=== PATIENT | female | born 1980 | race Caucasian/White ===

== ENCOUNTER 2018-12-24 20:53 | Inpatient (IN) | payer BC ==
[2018-12-24] MEDS: ONDANSETRON 4 MG INJ IV (21:46)
[2018-12-24] MEDS: PIPER-TAZO 3.375 GM IV (PMX) 100 ML IVPB (21:46)
[2018-12-24] MEDS: morphine 4 MG/ML VIAL IV (21:46)
[2018-12-24] MEDS: ACETAMINOPHEN 325 MG TAB PO (21:46)
[2018-12-24] MEDS: SODIUM CHLORIDE 0.9% 1L BAG IV* (21:46)
[2018-12-24 21:53] LABS: ADD MAN DIFF? NO
[2018-12-24 21:59] LABS: WHITE BLOOD COUNT 17.1 10^3/ul (4.8-10.8)
[2018-12-24 21:59] LABS: ABNORMAL IP MESSAGE 1; BASOPHIL # 0.1 10^3/ul (0.0-0.1); BASOPHILS % 0.6 % (0.0-2.0); EOSINOPHILS # 0.3 10^3/ul (0.0-0.5); EOSINOPHILS % 1.8 % (0.0-7.0); HEMATOCRIT 38.1 % (37.0-47.0); HEMOGLOBIN 12.2 g/dl (12.0-16.0); LYMPHOCYTES # 1.6 10^3/ul (0.8-2.9); LYMPHOCYTES % 9.5 % (15.0-51.0); MEAN CORPUSCULAR HEMOGLOBIN 27.5 pg (29.0-33.0); MEAN PLATELET VOLUME 10.7 fl (7.4-10.4); MONOCYTE # 0.9 10^3/ul (0.3-0.9); NEUTROPHIL # 13.3 10^3/ul (1.6-7.5); NEUTROPHILS % 77.6 % (39.0-77.0); PLATELET COUNT 438 10^3/UL (140-415); RED BLOOD COUNT 4.43 10^6/ul (4.20-5.40); RED CELL DISTRIBUTION WIDTH 15.9 % (11.5-14.5)
[2018-12-24 22:00] LABS: POSITIVE DIFF @See below
[2018-12-24 22:18] LABS: INR 1.18; PROTIME 15.1 Sec (11.9-14.9); PT RATIO 1.2
[2018-12-24 22:19] LABS: ANION GAP 11 (5-13); BLOOD UREA NITROGEN 22 mg/dl (7-20); CALCIUM 8.9 mg/dl (8.4-10.2); CARBON DIOXIDE 27 mmol/L (21-31); CHLORIDE 99 mmol/L (97-110); CREATININE 0.81 mg/dl (0.44-1.00); Estimated GFR > 60 mL/min (>60); GLUCOSE 118 mg/dl (70-220); PARTIAL THROMBOPLASTIN TIME 41.2 Sec (23.0-35.0); SODIUM 137 mmol/L (135-144)
[2018-12-24] MEDS ORDERED: ONDANSETRON 4 MG INJ IV (22:30)
[2018-12-24] MEDS: CLINDAMYCIN 900 MG/D5W (PMX) 50 ML IVPB (22:34)
[2018-12-24 23:02] LABS: ERYTHROCYTE SEDIMENTATION RATE 81 mm/Hr (0-20)
[2018-12-24 23:16] LABS: C-REACTIVE PROTEIN 42.8 mg/dl (0.0-0.9)
[2018-12-24] MEDS: HYDROmorphONE 0.5 MG/0.5 ML SYG IV (23:30)
[2018-12-24] MEDS: VANCOMYCIN 1 GM (PMX) 250 ML IVPB (23:30)
[2018-12-25 01:27] LABS: LACTIC ACID 1.9 mmol/L (0.5-2.0)
[2018-12-25 03:06] LABS: LACTIC ACID 1.2 mmol/L (0.5-2.0)
[2018-12-25] MEDS ORDERED: NACL 0.9% 3 ML SYG IV (03:30)
[2018-12-25] MEDS ORDERED: ONDANSETRON 4 MG INJ IV (03:30)
[2018-12-25] MEDS ORDERED: ACETAMINOPHEN 325 MG TAB PO (03:30)
[2018-12-25] MEDS ORDERED: VANCOMYCIN IV PER PHARMACY XX (03:30)
[2018-12-25] MEDS: SOD CHLORIDE 0.9% 1,000 ML IV ×3 (04:15→21:50)
[2018-12-25] MEDS: CEFEPIME 1GM/50 ML (PMX) 50 ML IVPB ×2 (09:14→20:18)
[2018-12-25] MEDS: ENOXAPARIN 40 MG/0.4 ML SYG SC (09:14)
[2018-12-25 09:32] LABS: ADD MAN DIFF? NO
[2018-12-25 09:37] LABS: BASOPHIL # 0.1 10^3/ul (0.0-0.1); BASOPHILS % 0.9 % (0.0-2.0); EOSINOPHILS # 0.4 10^3/ul (0.0-0.5); EOSINOPHILS % 2.4 % (0.0-7.0); HEMATOCRIT 36.8 % (37.0-47.0); HEMOGLOBIN 11.6 g/dl (12.0-16.0); LYMPHOCYTES # 1.6 10^3/ul (0.8-2.9); LYMPHOCYTES % 10.8 % (15.0-51.0); MEAN CORPUSCULAR HEMOGLOBIN 27.8 pg (29.0-33.0); MEAN CORPUSCULAR HGB CONC 31.5 g/dl (32.0-37.0); MEAN PLATELET VOLUME 11.2 fl (7.4-10.4); MONOCYTE # 0.7 10^3/ul (0.3-0.9); MONOCYTES % 4.4 % (0.0-11.0); NEUTROPHIL # 11.7 10^3/ul (1.6-7.5); NEUTROPHILS % 78.7 % (39.0-77.0); PLATELET COUNT 353 10^3/UL (140-415); RED BLOOD COUNT 4.18 10^6/ul (4.20-5.40); RED CELL DISTRIBUTION WIDTH 16.3 % (11.5-14.5)
[2018-12-25 09:37] LABS: WHITE BLOOD COUNT 14.9 10^3/ul (4.8-10.8)
[2018-12-25 09:55] LABS: ALANINE AMINOTRANSFERASE 14 IU/L (13-69); ALBUMIN 3.1 g/dl (3.3-4.9); ALBUMIN/GLOBULIN RATIO 0.73; ALKALINE PHOSPHATASE 497 IU/L (42-121); ANION GAP 6 (5-13); ASPARTATE AMINO TRANSFERASE 36 IU/L (15-46); BILIRUBIN,INDIRECT 0.4 mg/dl (0-1.1); BILIRUBIN,TOTAL 0.4 mg/dl (0.2-1.3); BLOOD UREA NITROGEN 19 mg/dl (7-20); CALCIUM 8.2 mg/dl (8.4-10.2); CARBON DIOXIDE 27 mmol/L (21-31); CHLORIDE 105 mmol/L (97-110); CHOL/HDL RATIO 8.2 RATIO; CHOLESTEROL 107 mg/dl (100-200); CREATININE 0.57 mg/dl (0.44-1.00); Estimated GFR > 60 mL/min (>60); GLUCOSE 139 mg/dl (70-220); HDL CHOLESTEROL 13 mg/dl (34-88); LDL CHOLESTEROL,CALCULATED 61 mg/dl; MAGNESIUM 2.2 mg/dl (1.7-2.5); PHOSPHORUS 5.3 mg/dl (2.5-4.9); POTASSIUM 4.9 mmol/L (3.5-5.1); SODIUM 138 mmol/L (135-144); TOTAL PROTEIN 7.3 g/dl (6.1-8.1); TRIGLYCERIDES 167 mg/dl (0-149)
[2018-12-25] MEDS: VANCOMYCIN HCL 1.5 GM in SOD CHLORIDE 0.9% 250 ML IVPB ×2 (10:16→21:50)
[2018-12-25] MEDS ORDERED: KETOROLAC 30 MG INJ IV (11:00)
[2018-12-25] MEDS: DIPHTH/TET/ACEL PERTUSS (ADULT) 0.5 ML VIAL IM* (12:50)
[2018-12-25] MEDS: ACETAMINOPHEN 325 MG TAB PO (17:45)
[2018-12-25] MEDS: LORAZEPAM 1 MG TAB PO (17:45)
[2018-12-25] MEDS: LACTOBACILLUS RHAMNOSUS CAP PO (20:18)
[2018-12-26] MEDS: CLONIDINE 0.1 MG/24 HR PATCH TRANSDERM (00:41)
[2018-12-26] MEDS: LORAZEPAM 1 MG TAB PO (00:51)
[2018-12-26 07:15] LABS: BARBITURATES Negative (NEGATIVE); CANNABINOIDS Positive (NEGATIVE); COCAINE Negative (NEGATIVE)
[2018-12-26 07:22] LABS: BENZODIAZEPINES Positive (NEGATIVE); OPIATES Positive (NEGATIVE)
[2018-12-26 07:27] LABS: AMPHETAMINE/METHAMPHETAMINE POSITIVE (NEGATIVE)
[2018-12-26] MEDS: LACTOBACILLUS RHAMNOSUS CAP PO (08:41)
[2018-12-26] MEDS: FAMOTIDINE 20 MG TAB PO (08:41)
[2018-12-26] MEDS: ENOXAPARIN 40 MG/0.4 ML SYG SC (08:42)
[2018-12-26] MEDS: VANCOMYCIN HCL 1.5 GM in SOD CHLORIDE 0.9% 250 ML IVPB (09:53)
== END 2018-12-26 15:55 | disposition home or self-care (01) | DRG 872 ==
LOC: PP2 22:30 → E/R 20:53
DX: A41.9 Sepsis, unspecified organism (principal); L03.115 Cellulitis of right lower limb; Z68.42 Body mass index [BMI] 45.0-49.9, adult; D64.9 Anemia, unspecified; E66.01 Morbid (severe) obesity due to excess calories; F39 Unspecified mood [affective] disorder; F17.200 Nicotine dependence, unspecified, uncomplicated; Z87.442 Personal history of urinary calculi
CPT/HCPCS: 36415; 73590; 80048; 80053; 80061; 80307; 81025; 82962; 83605; 83735; 84100; 85025; 85610; 85651; 85730; 86140; 87040-91; 87081; 90715; 93971; 96374; 96375; 99285-25

== ENCOUNTER 2019-02-09 19:37 | Emergency (ER) | payer BC | END 2019-02-09 20:49 | disposition home or self-care (01) | LOC: E/R 19:37 | DX: L03.115 Cellulitis of right lower limb (principal); Z87.891 Personal history of nicotine dependence | CPT/HCPCS: 99283 ==